=== PATIENT | female | born 1975 | race Caucasian/White ===

== ENCOUNTER 2017-05-24 02:50 | Emergency (ER) | payer BC ==
[~2017-05-24] VITALS: Ht 165.1 cm; Wt 62.6 kg
[~2017-05-24 02:50] MED LIST: CITA10TA17 PO
--- NOTE | 2017-05-24 03:25 | NUR ---
Dr. Helms at bedside for MSE.
[2017-05-24] MEDS ORDERED: SULFAMETH/TRIMETH 800/160 MG TABLET PO ONE (03:30)
[2017-05-24] MEDS ORDERED: SULFAMETH/TRIMETH 800/160 MG TABLET ONE (03:33)
[2017-05-24] MEDS ORDERED: IBUPROFEN 800 MG TABLET ONE (03:42)
[2017-05-24] MEDS ORDERED: IBUPROFEN 800 MG TABLET PO ONE (04:00)
--- NOTE | 2017-05-24 04:00 | NUR ---
Patient discharged to home in stable conditon. Written and verbal after care instructions given. Patient verbalizes understanding of instructions. Pt ambulated out of ER with steady gait, VSS, no acute signs of distress, all belongings taken.
[2017-05-24 04:02] VITALS: BP 158/96
== END 2017-05-24 04:03 | disposition home or self-care (01) ==
LOC: ER 02:54
DX: L03.113 Cellulitis of right upper limb (principal); Z91.041 Radiographic dye allergy status; Z79.899 Other long term (current) drug therapy
CPT/HCPCS: 99283; A4663